=== PATIENT | male | born 1930 | race Caucasian/White ===

== ENCOUNTER 2018-03-20 11:51 | Inpatient (IN) | payer MEDICARE, OTHER ==
[~2018-03-20] VITALS: Ht 165.1 cm; Wt 69.3 kg
[2018-03-20 12:14] LABS: BASOPHILS # (AUTO) 0.04 x10^3/uL (0-0.1); BASOPHILS % (AUTO) 0 % (0-1); EOSINOPHILS # (AUTO) 0.17 x10^3/uL (0-0.4); EOSINOPHILS % (AUTO) 1 % (1-7); LYMPHOCYTES # (AUTO) 3.23 x10^3/uL (1-3.4); LYMPHOCYTES % (AUTO) 23 % (22-44); MD NO; MEAN CORPUSCULAR HEMOGLOBIN 28.7 pg (27.5-34.5); MEAN CORPUSCULAR HGB CONC 33.5 g/dL (33.2-36.2); MEAN CORPUSCULAR VOLUME 85.6 fL (81-97); MONOCYTES # (AUTO) 1.42 x10^3/uL (0.2-0.8); MONOCYTES % (AUTO) 10 % (2-9); NEUTROPHILS # (AUTO) 8.94 x10^3/uL (1.8-6.8); NEUTROPHILS % (AUTO) 65 % (42-75); PLATELET COUNT 310 x10^3/uL (130-400); RED BLOOD COUNT 4.88 x10^6/uL (4.38-5.82); RED CELL DISTRIBUTION WIDTH 13.8 % (9.4-14.8)
[2018-03-20 12:24] LABS: INTERNATIONAL NORMALIZED RATIO 0.99 (0.93-1.1); PROTHROMBIN TIME 10.5 Seconds (9.6-11.5)
[2018-03-20] MEDS ORDERED: ASPI-496 PO (12:39)
[2018-03-20] MEDS ORDERED: [UNRECOGNIZED DRUG - CODE] PO (12:39)
[2018-03-20] MEDS ORDERED: CHOL100011 PO (12:39)
[2018-03-20] MEDS ORDERED: LISI40TA PO (12:39)
[2018-03-20] MEDS ORDERED: SIME80TA15 PO (12:39)
[2018-03-20] MEDS ORDERED: OMNIPAQUE 350 MG/ML, 100ML BOTTLE ONE (12:48)
[2018-03-20] MEDS ORDERED: NS + 20MEQ KCL 1,000 ML IV SCH (14:08)
[2018-03-20] MEDS ORDERED: morphine SULFATE 10 MG/ML, 1ML IVPush PRN (14:30)
[2018-03-20] MEDS ORDERED: ONDANSETRON 2MG/ML, 2ML IVPush PRN (14:30)
[2018-03-20] MEDS ORDERED: DOCUSATE 100 MG CAPSULE PO PRN (14:30)
[2018-03-20] MEDS ORDERED: ACETAMINOPHEN 325 MG TABLET PO PRN (14:30)
[2018-03-20] MEDS ORDERED: HEPARIN wt. based STROKE protocol MC PRN (14:30)
[2018-03-20] MEDS ORDERED: GUAIFENESIN/COD200MG-20MG/10ML LIQUID PO PRN (14:30)
[2018-03-20] MEDS ORDERED: CLINDAMYCIN PMX 600MG/50ML 50 ML ONE (15:49)
[2018-03-20] MEDS: CLINDAMYCIN PMX 600MG/50ML 50 ML IV SCH ×2 (15:57→23:26)
[2018-03-20] MEDS: SIMETHICONE 80 MG CHEW TAB PO SCH ×2 (16:00→19:43)
[2018-03-20 16:35] LABS: MICROSCOPIC NOT IND
[2018-03-20 16:46] LABS: CULTURE INDICATED? NO
[2018-03-20] MEDS ORDERED: HEPARIN 25,000 UNITS/500ML PMX 500 ML IV PRN (17:00)
[2018-03-20 19:41] VITALS: BP 145/72
[2018-03-20] MEDS ORDERED: ATORVASTATIN 40 MG TABLET PO SCH (21:00)
[2018-03-21 02:26] VITALS: BP 151/71
[2018-03-21 03:23] LABS: CHOL/HDL RATIO 5.3; LDL/HDL RATIO 3.8 (0.5-3.0)
[2018-03-21 07:49] VITALS: BP 118/66
[2018-03-21] MEDS: CLINDAMYCIN PMX 600MG/50ML 50 ML IV SCH ×2 (08:19→16:17)
[2018-03-21] MEDS: SIMETHICONE 80 MG CHEW TAB PO SCH ×3 (08:20→22:39)
[2018-03-21] MEDS: LISINOPRIL 10 MG TABLET PO SCH ×2 (08:20→10:31)
[2018-03-21] MEDS ORDERED: ASPIRIN 81 MG TABLET EC PO SCH (09:00)
[2018-03-21] MEDS: ASPIRIN 81 MG TABLET CHEW PO/NG SCH (10:31)
[2018-03-21 10:32] VITALS: BP 172/70
[2018-03-21 12:41] VITALS: BP 146/76
[2018-03-21 20:31] VITALS: BP 115/67
[2018-03-21] MEDS ORDERED: BACLOFEN 10 MG TABLET PO ONE (21:00)
[2018-03-21] MEDS: ATORVASTATIN 80 MG TABLET PO SCH (22:39)
[2018-03-22] MEDS: CLINDAMYCIN PMX 600MG/50ML 50 ML IV SCH ×2 (00:20→12:48)
[2018-03-22 00:28] VITALS: BP 107/53
[2018-03-22 04:21] VITALS: BP 149/74
[2018-03-22 06:59] VITALS: BP 120/67
[2018-03-22] MEDS: SODIUM CHLORIDE 0.9% 1,000 ML IV SCH ×2 (07:00→22:28)
[2018-03-22 07:18] LABS: MEAN CORPUSCULAR HEMOGLOBIN 28.5 pg (27.5-34.5); MEAN CORPUSCULAR HGB CONC 33.8 g/dL (33.2-36.2); MEAN CORPUSCULAR VOLUME 84.6 fL (81-97); PLATELET COUNT 315 x10^3/uL (130-400); RED BLOOD COUNT 4.51 x10^6/uL (4.38-5.82); RED CELL DISTRIBUTION WIDTH 13.7 % (9.4-14.8)
[2018-03-22 07:26] LABS: ALANINE AMINOTRANSFERASE 25 U/L (12-78); ANION GAP 7 mmol/L (5-15); CALCIUM 8.6 mg/dL (8.5-10.1); CHLORIDE 109 mmol/L (98-107)
[2018-03-22 07:29] LABS: ALKALINE PHOSPHATASE 67 U/L (45-117); BILIRUBIN,TOTAL 0.4 mg/dL (0.2-1.0); TOTAL PROTEIN 6.7 g/dL (6.4-8.2)
[2018-03-22 07:35] LABS: BASOPHILS # (AUTO) 0.02 x10^3/uL (0-0.1); BASOPHILS % (AUTO) 0 % (0-1); EOSINOPHILS # (AUTO) 0.02 x10^3/uL (0-0.4); EOSINOPHILS % (AUTO) 0 % (1-7); LYMPHOCYTES % (AUTO) 16 % (22-44); MD SCAN; MONOCYTES # (AUTO) 1.64 x10^3/uL (0.2-0.8); MONOCYTES % (AUTO) 9 % (2-9); NEUTROPHILS # (AUTO) 13.43 x10^3/uL (1.8-6.8); NEUTROPHILS % (AUTO) 75 % (42-75)
[2018-03-22] MEDS ORDERED: SODIUM CHLORIDE 0.9% 500 ML IV SCH ×2 (08:00→09:00)
[2018-03-22] MEDS ORDERED: AMPICILLIN/SULBACTAM 1,500 MG in SODIUM CHLORIDE 0.9% 50 ML IV SCH ×2 (08:00→22:00)
[2018-03-22] MEDS: SIMETHICONE 80 MG CHEW TAB PO SCH ×3 (09:00→21:00)
[2018-03-22] MEDS: CLOPIDOGREL 75 MG TABLET PO SCH (09:00)
[2018-03-22] MEDS: ASPIRIN 81 MG TABLET CHEW PO/NG SCH (09:00)
[2018-03-22] MEDS ORDERED: SODIUM CHLORIDE 0.9% 1,000ML IVBOLUS ONE (10:30)
[2018-03-22 11:30] LABS: MICROSCOPIC AUTO
[2018-03-22 13:45] VITALS: BP 117/69
[2018-03-22 20:00] VITALS: BP 160/90
[2018-03-22] MEDS: ATORVASTATIN 80 MG TABLET PO SCH (21:00)
[2018-03-23] VITALS: BP 135/69
[2018-03-23 02:11] VITALS: BP 129/68
[2018-03-23] MEDS ORDERED: morphine SULFATE 10 MG/ML, 1ML IVPush PRN (02:30)
[2018-03-23 06:12] LABS: MEAN CORPUSCULAR HEMOGLOBIN 29.1 pg (27.5-34.5); MEAN CORPUSCULAR HGB CONC 34.1 g/dL (33.2-36.2); MEAN CORPUSCULAR VOLUME 85.1 fL (81-97); MEAN PLATELET VOLUME 8.2 fL (7.4-10.4); PLATELET COUNT 288 x10^3/uL (130-400); RED BLOOD COUNT 4.56 x10^6/uL (4.38-5.82); RED CELL DISTRIBUTION WIDTH 14.2 % (9.4-14.8)
[2018-03-23 06:23] LABS: ALBUMIN 2.9 g/dL (3.4-5.0); ANION GAP 10 mmol/L (5-15); CALCIUM 8.1 mg/dL (8.5-10.1); CHLORIDE 113 mmol/L (98-107)
[2018-03-23 06:27] LABS: ALANINE AMINOTRANSFERASE 41 U/L (12-78); ALKALINE PHOSPHATASE 67 U/L (45-117); BILIRUBIN,TOTAL 0.4 mg/dL (0.2-1.0); TOTAL PROTEIN 7.1 g/dL (6.4-8.2)
[2018-03-23 06:43] LABS: MD YES
[2018-03-23 06:45] LABS: <PLATELET ESTIMATE> ADEQUATE; <PLT MORPHOLOGY> NORMAL PLT MORPH; <RBC MORPHOLOGY> NORMAL; BAND#(MANUAL) 0.22 x10^3/uL; BANDS%(MANUAL) 1 % (0-7); LYMPH#(MANUAL) 1.55 x10^3/uL (1-3.4); LYMPHS% (MANUAL) 7 % (22-44); MONOS#(MANUAL) 1.11 x10^3/uL (0.3-2.7); MONOS% (MANUAL) 5 % (2-9); SEG#(MANUAL) 19.31 x10^3/uL (1.8-6.8); SEGS% (MANUAL) 87 % (42-75)
[2018-03-23] MEDS: LISINOPRIL 10 MG TABLET PO SCH (07:43)
[2018-03-23] MEDS: ASPIRIN 81 MG TABLET CHEW PO/NG SCH (07:43)
[2018-03-23] MEDS: SIMETHICONE 80 MG CHEW TAB PO SCH (07:43)
[2018-03-23] MEDS: CLOPIDOGREL 75 MG TABLET PO SCH (07:43)
[2018-03-23] MEDS: SODIUM CHLORIDE 0.9% 1,000 ML IV SCH (07:56)
[2018-03-23] MEDS ORDERED: LORazepam INTENSOL 2 MG/ML SL PRN (08:30)
[2018-03-23] MEDS ORDERED: MORPHINE SULFATE 4 MG/ML, 1ML IVPush PRN (08:30)
[2018-03-23] MEDS ORDERED: PROCHLORPERAZINE 5 MG/ML, 2ML IVPush PRN (08:30)
[2018-03-23] MEDS ORDERED: SODIUM CHLORIDE 0.9% 1,000 ML IV SCH (09:00)
[2018-03-23] MEDS: LORazepam 2 MG/ML, 1ML IVPush PRN ×2 (10:28→16:33)
[2018-03-23] MEDS ORDERED: DIPHENOXYLATE/ATROPINE ORAL SOL PO PRN (10:30)
== END 2018-03-23 18:38 | disposition expired | DRG 871 ==
LOC: ED 13:55 → SUATTDRO 14:07 → EDIP 14:08 → 4EST 16:39
PROVIDERS: ADMIT Family Medicine; ATTEND Family Medicine
PROC: 0T9B70Z Drainage of Bladder with Drainage Device, Via Natural or Artificial Opening (ICD-10-PCS; principal; 2018-03-20)
PROC: 0T9B70Z Drainage of Bladder with Drainage Device, Via Natural or Artificial Opening (ICD-10-PCS; 2018-03-22)
DX: A41.9 Sepsis, unspecified organism (principal); I63.9 Cerebral infarction, unspecified; J69.0 Pneumonitis due to inhalation of food and vomit; J96.01 Acute respiratory failure with hypoxia; N17.0 Acute kidney failure with tubular necrosis; E87.2 Acidosis; J32.0 Chronic maxillary sinusitis; Z51.5 Encounter for palliative care; Z66 Do not resuscitate; R47.1 Dysarthria and anarthria; R13.10 Dysphagia, unspecified; I10 Essential (primary) hypertension; E78.5 Hyperlipidemia, unspecified; Z87.891 Personal history of nicotine dependence; Z79.82 Long term (current) use of aspirin; Z79.899 Other long term (current) drug therapy
CPT/HCPCS: 36415; 36600; 70450; 70496; 70498; 70551; 71045; 80047; 80053; 80061; 81001; 81003; 82803; 82962; 85025; 85520; 85610; 85730; 93005; 93306; 99291; G0378; J1644; J3480; Q9967; J0295; J2060; J2270; J7030

== ENCOUNTER 2018-03-23 11:16 | Inpatient (IN) | payer MEDICARE ==
[~2018-03-23] VITALS: Ht 162.6 cm; Wt 69.3 kg
[~2018-03-23 11:16] MED LIST: ASPI-496 PO; CHOL100011 PO; LISI40TA PO; SIME80TA15 PO; [UNRECOGNIZED DRUG - CODE] PO
[2018-03-23] MEDS ORDERED: SODIUM CHLORIDE 0.9% 1,000 ML IV SCH (13:09)
[2018-03-23] MEDS ORDERED: SCOPOLAMINE PATCH, 1.5MG PATCH.TD72 TD SCH (13:30)
[2018-03-23] MEDS ORDERED: PLEASE ENTER HEIGHT AND WEIGHT MC SCH (13:30)
[2018-03-23] MEDS ORDERED: MORPHINE SULFATE 4 MG/ML, 1ML IVPush PRN ×3 (13:30)
[2018-03-23] MEDS ORDERED: ATROPINE OPHTH SOLN 1%, 5ML BC PRN (13:30)
[2018-03-23] MEDS ORDERED: LORazepam 2 MG/ML, 1ML IVPush PRN (13:30)
== END 2018-03-23 19:50 | disposition expired | DRG 64 ==
LOC: 4EST 11:16 → 3NW 16:45
PROVIDERS: ADMIT Internal Medicine; ATTEND Internal Medicine
DX: I63.9 Cerebral infarction, unspecified (principal); J69.0 Pneumonitis due to inhalation of food and vomit; J96.01 Acute respiratory failure with hypoxia; G93.41 Metabolic encephalopathy; R40.20 Unspecified coma; I69.354 Hemiplegia and hemiparesis following cerebral infarction affecting left non-dominant side; N17.9 Acute kidney failure, unspecified; D63.8 Anemia in other chronic diseases classified elsewhere; E88.09 Other disorders of plasma-protein metabolism, not elsewhere classified; I69.322 Dysarthria following cerebral infarction; R73.9 Hyperglycemia, unspecified; I10 Essential (primary) hypertension; Z51.5 Encounter for palliative care; Z66 Do not resuscitate
CPT/HCPCS: G0378; J2270; J7030